=== PATIENT | female | born 1980 | race Caucasian/White ===

== ENCOUNTER 2022-10-08 15:43 | Inpatient (IN) | payer SELFPAY, OTHER ==
[2022-10-02 14:41] LABS: Hematocrit 34.7 % (37-47); Hemoglobin 10.2 g/dL (12.0-15.0); Mean Corp Hgb Conc 29.4 g/dL (32-36); Mean Corpuscular Hgb 21.4 pg (27.0-32.0); Mean Corpuscular Volume 72.7 fL (81-99); Mean Platelet Vol. 10.2 fl (6.2-12.0); Platelet Count 301 K/mm3 (150-450); RBC Distribution Width SD 44.2 fl (35.1-43.9); Red Blood Count 4.77 M/mm3 (4.2-5.4); White Blood Count 7.3 K/mm3 (4.4-11.0)
[2022-10-08] VITALS (26 sets, daily range): BP systolic 89–123; BP diastolic 59–88; PULSE 53–75; RESP 16–18; TEMP 36.4–37.7; O2SAT 90–100; BMI 25.3
[2022-10-08 06:13] LABS: Internal QC Validated? YES +Cl - CLEAR BKGD; Pregnancy, Urine Negative Negative
[2022-10-08] MEDS: dexAMETHasone 10 MG/ML Vial 8 MG IV (06:18)
[2022-10-08] MEDS: Lactated Ringers 1,000 ML 40 ML IV ×2 (06:18→09:30)
[2022-10-08] MEDS: Gabapentin 600 MG Tablet PO (06:19)
[2022-10-08] MEDS: Acetaminophen 500 MG Tablet 1000 MG PO ×3 (06:19→23:44)
[2022-10-08] MEDS: Magnesium 2 GM for ERAS IV (06:25)
[2022-10-08 06:46] LABS: Bedside Glucose 129 mg/dL (74-106)
--- NOTE | 2022-10-08 07:11 | PCM.HP.BLA ---
History and Physical Date of Admission: 10/08/22 HPI: 41-year-old female with enlarged fibroid uterus plan for total abdominal hysterectomy, bilateral salpingectomy, cystoscopy. Denies headache or vision changes, chest pain or shortness of breath, nausea or vomiting, fevers or chills, diarrhea or constipation. 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 Fibroid uterus Surgical history: 1. Dilation curettage 2. Appendectomy Medications: 1. Vitamins Allergies: No known drug allergies Social history: Denies tobacco, alcohol, drug use Family history: Noncontributory. Diabetes, breast cancer Review of system: Negative otherwise stated above Physical exam Blood pressure 106/75, heart rate 75, respirations 18, temp 97.6 ?F, oxygen saturation 100% on room air General: No acute distress HEENT: Normal cephalic/atraumatic, PERRLA Cardiac: Regular rate and rhythm no murmurs rubs or gallops Respiratory: Clear to auscultation bilaterally Abdomen: Soft, nontender, nondistended. Fibroid uterus palpable Extremities: No edema Musculoskeletal: Strength 5 out of 5 throughout extremities Neurologic: Cranial nerves II through XII grossly intact, no focal deficits Assessment/plan: 41-year-old female with enlarged fibroid uterus plan for total abdominal hysterectomy, bilateral salpingectomy, cystoscopy. Originally had planned to attempt a laparoscopic hysterectomy, however at preoperative appointment had further discussion that laparoscopy would likely need to be converted to laparotomy. Decision at that appointment was made to proceed with total abdominal hysterectomy, bilateral salpingectomy and cystoscopy. All risk, benefits, alternatives discussed with the patient. Risk include but are not limited to: Risk of bleeding to the point transfusion, infection, injury to surrounding tissue (bowel/bladder/major abdominal vessels), VTE, ICU admission. Patient were consented.
--- NOTE | 2022-10-08 07:30 | HYST_PTH ---
PATIENT: TAYLA JONES LOC: [facility]3 U#:[id number] AGE/SX: 41/F ROOM: MS311 RE10/08/[address]: Dr. Jordyn Cee DO : 1980 BED: 1 DIS: 10/09/2022 SPEC #: [id number] RECD: 10/08/22 10:09 STATUS: JACIEL REQ #: [id number] ROBERT: 10/08/22 07:[address]: Jordyn Cee DEPT: SURGICAL PATHOLOGY RECD BY: Brionna Dooley ENTERED: 10/08/22 12:00 SP TYPE: HYSTERECT OTHR DR: Dr. Main Henriquez MD Tissues: Uterus, NOS Procedures: Surgery Specimen Level V HEADER OPERATION: ERAS, supracervical hysterectomy, ALONDRA, salpingectomy, cysto PRE-OP DIAGNOSIS: Enlarged fibroid uterus TISSUE SUBMITTED: Uterus, uterine fibroid, bilateral fallopian tubes MICROSCOPIC DIAGNOSIS Uterus, uterine fibroid and bilateral fallopian tubes, supracervical hysterectomy and bilateral salpingectomy: Endometrium ? proliferative endometrium. Myometrium ? intramural leiomyomas (largest measuring 11 cm in diameter). - Focal adenomyosis. Bilateral fallopian tubes - no pathologic diagnosis. ANTONI:pacheco 10/09/2022 MICROSCOPIC DESCRIPTION Slides are reviewed. GROSS DESCRIPTION Received in fixative is one container labeled with the patient's name and designated uterus, uterine fibroid and bilateral fallopian tubes. The specimen consists of a supracervical hysterectomy specimen consisting of uterus and detached bilateral fallopian tubes. The uterus weighs 939 gm and measures 15 x 13 x 12 cm. The serosal surface is martin, glistening. The endometrial cavity is compressed to one side and measures 9 cm in length and up to 2.5 cm in width. The endometrium is martin without any mass lesion and measures up to 0.2 cm in thickness. Sections of the uterine wall reveal a large nodular mass measuring 11 cm in diameter. Two smaller nodular masses are also noted measuring 1 and 1.5 cm in greatest dimension. Sections of these masses reveal martin whorled cut surfaces without areas of hemorrhage, necrosis or cystic degeneration. The uterine wall measures up to 4 cm in thickness. The fallopian tubes are not identified as right or left and each measure 5.5 cm in length and 0.5 cm in diameter. The fimbrial ends are identified. Sections reveal unremarkable cut surfaces. Agency Sales Representative sections are submitted in ten cassettes as follows: 1 & 2 - anterior uterine wall, 3 & 4 - posterior uterine wall, 5-7 - largest nodular mass, 8 - smaller nodular masses, 9 - one fallopian tube, 10 - second fallopian tube. / ANTONI:pacheco 10/08/2022 TC:1 CPT: 11993
--- NOTE | 2022-10-08 07:32 | OP.PCM_ITS ---
Report of Operation Date of Procedure: 10/08/22 Pre-Operative Diagnosis: Enlarged fibroid uterus Post-Operative Diagnosis: Enlarged fibroid uterus Surgery/Procedure Performed:: Abdominal supracervical hysterectomy, bilateral salpingectomy, cystoscopy Description of Surgical Findings:: Normal-appearing external genitalia. Enlarged fibroid uterus approximately 13- 1/2 cm x 12 cm in size. Normal-appearing bilateral fallopian tubes and ovaries. Ovaries located high and directly adjacent to the lateral sides of the uterus. Engorged uterine and gonadal vessels. Type of Anesthesia: General Specimen's removed: Uterus, bilateral fallopian tubes Estimated Blood Loss (mL): 200 cc Fluids Replaced: 1400 cc Description of Procedure: Indications/risk/benefits: 41-year-old female with enlarged fibroid uterus plan for total abdominal hysterectomy, bilateral salpingectomy, cystoscopy. All risk, benefits, alternatives discussed with patient. Risk include but are not limited to: Risk of bleeding twin transfusion, infection, injury to surrounding tissue including bowel/bladder/major abdominal vessels, VTE, ICU admission. Patient aware and consented. Procedure: Patient taken to the operating room placed under general anesthesia. Patient placed in the supine position and prepped and draped in the usual sterile fashion. Made a large skin incision made with scalpel and carried down through subcutaneous tissue. Fascia nicked on either side of midline and extended bilaterally. Left rectus muscle lateral edge was identified and retracted toward midline using Robin retractor. Inferior epigastric vessels identified and isolated using hemostats. Two hemostats grasped inferior epigastrics superior and inferiorly. Vessels incised medially. Free tie ligated each end of the vessels. Lateral edge of the right rectus muscle identified and retracted medially. Inferior epigastric vessels identified and isolated using hemostats. Hemostats grasped inferior epigastric superiorly and inferiorly, vessels incised medially. Free tie ligated each end of the vessels. Hand placed underneath left rectus muscle and rectus muscle was dissected using Bovie. Right rectus muscle was dissected using Bovie in a similar fashion. Hemostat used to grasp the peritoneum which was incised with Metzenbaum scissors. Peritoneum extended bluntly and sharply. Jalil retractor placed, ensuring that the retractor was against the fascia directly. Inspection of the abdominal cavity noted enlarged fibroid uterus noted as above. Bilateral fallopian tubes identified. Right fallopian tube grasped Julian clamps and removed using LigaSure device along the mesosalpinx. Left fallopian tube grasped with [place] clamps and removed along mesosalpinx using LigaSure device. Right round ligament suture-ligated and incised using Bovie electrocautery. Dissection carried down the anterior leaf of the broad ligament starting the bladder flap. Left round ligament was suture-ligated and incised using Bovie. Dissection of the anterior leaf of the broad ligament carried towards midline using sharp and blunt dissection. Dissection of the medial leaf of the broad ligament completed bluntly on the left, identification of the ureter was seen. Peritoneal window below the IP ligament made. LigaSure device utilized to coagulate and cut the utero-ovarian ligament and vessels. Right medial leaf of the broad ligament dissection completed identifying the ureter. Dissection of the broad ligament allowed adhesions of the right colon to fall completely away from the uterus and cervix. Peritoneal window made underneath the IP ligament. Utero-ovarian ligament and vessels were coagulated and cut allowing the ovary to fall away from the uterus. Further dissection of the vesicouterine peritoneum was completing allowing the bladder to fully fall away from anterior cervix. Uterine arteries were skeletonized bilaterally. Left uterine artery coagulated and cut perpendicular and then parallel to the cervix. Right uterine artery coagulated and cut perpendicularly and then parallel to the cervix. Uterus was removed from the cervix using Bovie. Further dissection of the uterine arteries bilaterally was made allowing them to fall away from the remaining cervix. Bleeding from the right uterine artery was noted. Attempted coagulation with LigaSure and 2 clips. Straight Zeppelin was placed just lateral to the cervix perpendicularly and 2 sutures were placed lateral to the Zeppelin, and one medial. Hemostasis achieved. Attempted placement of right angle Zeppelins in her to remove the remaining cervix was completed. Placement of right Zeppelin was close to the right uterine artery. Decision made to not remove the cervix due to this and the now resolved right uterine artery bleeding. [id number] stitches were placed at the apex of the remaining cervical tissue to ensure hemostasis. Pelvis was irrigated. Uterine arteries and remaining cervix were inspected, and found to be hemostatic. Floseal placed along the cervix and uterine arteries. Laps were removed, Jalil retractor removed. Peritoneum closed with a running stitch. Fascia closed with a running stitch. Cystoscopy was then performed in a frog-leg position. Cystoscopy noted intact bladder dome and bilateral ureteral jets. Subcutaneous tissue was then closed with suture and skin closed with a running subcuticular stitch. At the end of the procedure all needle, lap, sponge counts were correct. UOP: 800cc clear urine Complications None
--- NOTE | 2022-10-08 07:32 | PCM.DC ---
Discharge Instructions Diet Discharge Diet: No restrictions Activity Discharge Activity: Return to Normal Activity and May Shower May resume sexual activity in: 6 weeks Weight Bearing Status: Weight bearing as tolerated Lifting Restrictions: No greater than 15 pounds Dressing / Incision Call your doctor if your incision/area has: Continuous Slow Oozing, Increased Redness and Foul Smelling Discharge Call your doctor if you observe: Fever of 101 or Higher, Inability to urinate, Inability to have a bowel movement, Using more than 1 pad per hour, Shortness of breath, Swelling in the ankles, Chest pain and Uncontrolled pain Cleanse incision/area with: Soap & Water and Keep Dressing Clean & Dry Follow Up Care Please Follow Up With: Jordyn Cee DO When: 2 weeks post operative appointment Test Results: Test results from this visit will be discussed in further detail at your follow-up appointment, if applicable. Discharge Plan Admission Primary Reason for Your Visit: Hysterectomy Attending Provider: Jordyn Cee Primary Care Provider: Main Henriquez Discharge Orders/Prescriptions Prescriptions: New oxycodone 5 mg tablet 5 mg PO Q6H PRN (Reason: pain (scale score 7-10)) 5 Days Qty: 24 0RF Continued vitamin B complex Capsule 1 cap PO DAILY coenzy [id number] Tablet 1 tab PO DAILY Immune Therapy 1 cap PO/SL BID Other Ambulatory Orders: ,Urine (Routine) Timeframe: 20221008 Facility: [facility] - Location: Laboratory Ordered By: Dr. Ovi Olvera Referrals / Follow Up: Main Henriquez MD [Primary Care Provider] - Disposition Disposition (needs filled in before D/C Order can be placed): Home, Self Care
[2022-10-08] MEDS: Cefazolin 2 GM in 0.9% Normal Saline 100 ML IV (07:35)
[2022-10-08] MEDS: Lactated Ringers 1,000 ML 100 ML IV (17:09)
[2022-10-08] MEDS: Ibuprofen 600 MG Tablet PO (21:28)
[2022-10-09 03:12] VITALS: BP 120/75; PULSE 60; RESP 18; TEMP 37.1; O2SAT 97
[2022-10-09] MEDS: Ibuprofen 600 MG Tablet PO ×2 (03:16→08:41)
[2022-10-09] MEDS: Lactated Ringers 1,000 ML 100 ML IV (03:16)
[2022-10-09] MEDS: Acetaminophen 500 MG Tablet 1000 MG PO (06:05)
[2022-10-09 07:01] LABS: Absolute Lymphocyte Count 1.75 X10^3/uL (0.83-4.51); Absolute Neutrophil Count 7.3 X10^3/uL (2.0-7.7); Basophil# 0.04 X10^3/uL; Basophil% 0.4 % (0-1); Eosinophil# 0.08 X10^3/uL; Eosinophils% 0.8 % (0-5); Hematocrit 30.6 % (37-47); Lymphocyte # 1.75 X10^3/ul (0.83-4.51); Lymphocyte % 17.1 % (19-41); Mean Corp Hgb Conc 29.4 g/dL (32-36); Mean Corpuscular Hgb 21.6 pg (27.0-32.0); Mean Corpuscular Volume 73.4 fL (81-99); Mean Platelet Vol. 9.6 fl (6.2-12.0); Monocyte# 1.05 X10^3/uL; Monocyte% 10.3 % (0-10); NRBC Flagged by Analyzer 0 % (0-5); Neutrophil # 7.27 X10^3/uL (2.7-7.7); Platelet Count 296 K/mm3 (150-450); RBC Distribution Width CV 17.1 % (11.6-14.6); RBC Distribution Width SD 44.9 fl (35.1-43.9); Red Blood Count 4.17 M/mm3 (4.2-5.4); White Blood Count 10.2 K/mm3 (4.4-11.0)
--- NOTE | 2022-10-09 07:24 | PCM.PN.OB ---
Subjective Subjective Feeling sore but pain well controlled. Has been voiding spontaneously. Tolerated some diet last night. Objective Data Objective Data Vital Signs: Vital Signs Temp Pulse Resp BP Pulse Ox O2 Del Method O2 Flow Rate 98.8 F 60 18 120/75 97 Room Air 4 10/09/22 03:12 10/09/22 03:12 10/09/22 03:12 10/09/22 03:12 10/09/22 03:12 10/09/22 03:12 10/08/22 14:00 Oxygen Flow Rate (L/min) 4 Oxygen Delivery Method Room Air Weight: 69 kg Body Mass Index (BMI) 25.3 Intake & Output: Intake and Output for Last 24 Hours 10/07/22 10/08/22 10/09/22 23:59 23:59 23:59 Intake Total 3705.67 / 3705.67 1000 / 1000 Output Total 1250 / 1250 Balance 2455.67 / 2455.67 1000 / 1000 Lab / Micro Data Attestation: I reviewed the patient's lab results. Result Diagrams: 10/09/22 06:54 Labs: Laboratory Results - last 24 hr 10/09/22 06:54: WBC 10.2, RBC 4.17 L, Hgb 9.0 L, Hct 30.6 L, MCV 73.4 L, MCH 21.6 L, MCHC 29.4 L, RDW Std Deviation 44.9 H, RDW Coeff of Sarah 17.1 H, Plt Count 296, MPV 9.6, Immature Gran % (Auto) 0.400, Neut % (Auto) 71.0 H, Lymph % (Auto) 17.1 L, [place] % (Auto) 10.3 H, Eos % (Auto) 0.8, Baso % (Auto) 0.4, Absolute Neuts (auto) 7.3, Absolute Lymphs (auto) 1.75, Nucleated RBC % 0 Physical Exam Const alert, oriented x3 and no apparent distress HEENT normocephalic Resp normal respiratory effort Cardio regular rate GI soft to palpation, non-distended and no masses GI Narrative: Mildly tender. Dressing clean and dry. Extremity no pedal edema Neuro moves all extremities, no focal motor deficits and no sensory deficits noted Assessment & Plan (1) Other acute postprocedural pain: PLAN: Postop day 1 status post supracervical hysterectomy and bilateral salpingectomy. Acute on chronic anemia secondary to surgery. Vitals stable. Voiding spontaneously. Pain well controlled. Tolerating diet. Discharge home today.
[2022-10-09 07:55] VITALS: BP 108/74; PULSE 64; RESP 16; TEMP 36.8; O2SAT 98
[2022-10-09 07:58] VITALS: BP 108/74; PULSE 64; RESP 16; TEMP 36.8; O2SAT 98
--- NOTE | 2022-10-09 09:17 | CASEMGMT ---
KARTHIK GALAN Assessment: Face to Face with pt for initial transition planning/care coordination assessment. RN ANGELIA introduced self and role at [facility], pt voices understanding and consents to assessment. Pt is A/O x4 and answers all questions appropriately at this time. Pt sitting up in bed in no distress with at bedside. Care providers, pharmacy, and demographics verified/updated. Admitting Dx: [facility] BS cysto, poss ALONDRA BS Cysto PCP:[place] Specialists:Coleman, REVERSAL PRINT INSPECTOR Preferred Pharmacy: [facility] Retail Insurance: [facility] Package Plan, [employer] Prescription Benefit: no LNOK: Ananda Vargas, Living Arrangements: Pt lives with and 5 children in a two story home with a couple of steps to enter. Pt reports she is typically I in ADL's and denies concerns at home. 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 DME/HHC/SNF: Pt denies having any DME in the home, previous HHC or SNF stays. Pt states no concerns with going home at time of dc. Pt would like meds brought to the room. TC to pharmacy, spoke with Mekhi and he is aware pt would like meds delivered and stacker driver will be here at 10am for pickup. Pt states no further concerns/needs. CM to follow. Advised pt to ask CM if any further question/concerns/needs arise, voices understanding. Pt Goal: Home Plan: Home
== END 2022-10-09 10:14 | disposition home or self-care (01) | DRG 742 ==
LOC: MS3 16:10
PROVIDERS: Anesthesiology; Admitting Provider Student in an Organized Health Care Education/Training Program; PCP Family Medicine; Referring Provider Student in an Organized Health Care Education/Training Program; Visit Provider Student in an Organized Health Care Education/Training Program
PROC: 0UT90ZZ Resection of Uterus, Open Approach (ICD-10-PCS; CPT 58150; principal; 2022-10-08 07:10)
DX: D25.1 Intramural leiomyoma of uterus (principal); D62 Acute posthemorrhagic anemia; Z90.49 Acquired absence of other specified parts of digestive tract
CPT/HCPCS: 36415; 81025; 82962; 83735; 85025; 85027; 86850; 86900; 86901; 88307; J7120; J2405

== ENCOUNTER → 2022-11-20 | Outpatient (CLI) | payer OTHER, SELFPAY ==
[2022-11-30 16:59] LABS: HPV APTIMA, High Risk Negative (Negative)
== END | disposition home or self-care (01) ==
LOC: LABSPEC 14:13
PROVIDERS: PCP Family Medicine; Visit Provider Student in an Organized Health Care Education/Training Program
DX: Z12.4 Encounter for screening for malignant neoplasm of cervix (principal)
CPT/HCPCS: 87624; 88175; G0145